=== PATIENT | male | born 1945 | race Caucasian/White ===

== ENCOUNTER 2022-06-12 13:39 | Emergency (ER) | payer OTHER, MEDICARE, BC ==
[2022-06-12 14:54] LABS: CHLORIDE,CL 99 mmol/L (98-107); SODIUM,NA 138 mmol/L (136-145)
[2022-06-12 14:56] LABS: ANION GAP 12.3 mmol/L (5-15); ESTIMATED GFR 70 mL/min (>=60)
[2022-06-12] MEDS ORDERED: Take Home: Cyclobenzaprine 10 MG Tab, 4 Tab Pack PO ONE (15:01)
[2022-06-12] MEDS ORDERED: Cyclobenzaprine 10 MG Tab PO ONE (15:09)
== END 2022-06-12 15:17 | disposition home or self-care (01) ==
LOC: VM.ED 13:39
DX: M54.16 Radiculopathy, lumbar region (principal); E78.00 Pure hypercholesterolemia, unspecified; I10 Essential (primary) hypertension; E11.9 Type 2 diabetes mellitus without complications; Z79.82 Long term (current) use of aspirin; Z79.84 Long term (current) use of oral hypoglycemic drugs; Z79.899 Other long term (current) drug therapy; Z86.16 Personal history of COVID-19
CPT/HCPCS: 36415; 80053; 83880; 85025; 85379; 99283; A9270-GY

== ENCOUNTER 2022-11-11 14:16 | Emergency (ER) | payer OTHER, MEDICARE, BC ==
[2022-11-11] MEDS ORDERED: HYDROmorphone 1 MG/ML Syringe SUBCUT ONE (14:34)
== END 2022-11-11 15:42 | disposition home or self-care (01) ==
LOC: VM.ED 14:16
DX: M54.10 Radiculopathy, site unspecified (principal); E78.00 Pure hypercholesterolemia, unspecified; I10 Essential (primary) hypertension; E11.9 Type 2 diabetes mellitus without complications; Z86.16 Personal history of COVID-19; Z79.82 Long term (current) use of aspirin; Z79.84 Long term (current) use of oral hypoglycemic drugs
CPT/HCPCS: 96372; 99283; 99284; J1170

== ENCOUNTER 2022-11-16 08:58 | Emergency (ER) | payer OTHER, MEDICARE, BC ==
[2022-11-16] MEDS ORDERED: HYDROmorphone 1 MG/ML Syringe SUBCUT ONE (09:26)
== END 2022-11-16 10:30 | disposition home or self-care (01) ==
LOC: VM.ED 08:58
DX: M54.10 Radiculopathy, site unspecified (principal); M54.50 Low back pain, unspecified; I10 Essential (primary) hypertension; E78.00 Pure hypercholesterolemia, unspecified; E11.9 Type 2 diabetes mellitus without complications; Z86.16 Personal history of COVID-19; Z79.82 Long term (current) use of aspirin; Z79.84 Long term (current) use of oral hypoglycemic drugs; Z79.899 Other long term (current) drug therapy
CPT/HCPCS: 72100; 96372; 99283; J1170

== ENCOUNTER 2024-10-08 07:44 | Emergency (ER) | payer OTHER ==
[2024-10-08 08:30] LABS: BASOPHILS PERCENT AUTO 0.2 % (0.2-1.2); EOSINOPHILS ABSOLUTE AUTO 0.1 x10^3/uL (0.0-0.5); EOSINOPHILS PERCENT AUTO 1.5 % (0.0-4.0); HEMATOCRIT 35.7 % (40.0-52.0); HEMOGLOBIN 12.4 g/dL (14.0-18.0); IMMATURE GRAN ABSOLUTE AUTO 0.01 x10^3/uL (0.00-0.07); LYMPHOCYTES ABSOLUTE AUTO 1.3 x10^3/uL (1.0-4.8); LYMPHOCYTES PERCENT AUTO 14.7 % (25.0-50.0); MEAN CORPUSCULAR HEMOGLOBIN 30.1 pg (26.0-32.0); MEAN CORPUSCULAR HGB CONC 34.7 g/dL (32.0-36.0); MEAN CORPUSCULAR VOLUME 86.7 fL (78.0-93.0); MONOCYTES ABSOLUTE AUTO 0.6 x10^3/uL (0.0-0.8); MONOCYTES PERCENT AUTO 6.2 % (2.0-11.0); NEUTROPHILS ABSOLUTE AUTO 6.9 x10^3/uL (1.8-7.7); NEUTROPHILS PERCENT AUTO 77.3 % (50.0-80.0); PLATELET COUNT,PLT 135 x10^3/uL (130-400); RED BLOOD CELL COUNT 4.12 x10^6/uL (4.5-6.0); WHITE BLOOD CELL COUNT,WBC 8.9 x10^3/uL (4.0-10.0)
[2024-10-08 08:51] LABS: A/G RATIO 1.5; ALBUMIN 3.9 g/dL (3.4-5.0); BILIRUBIN TOTAL 0.7 mg/dL (0.2-1.0); CREATININE 1.1 mg/dL (0.70-1.30); EST CRCL DRUG DOSING (CG) 53.55 mL/min; POTASSIUM,K 4.8 mmol/L (3.5-5.1); PROTEIN TOTAL,TP 6.5 g/dL (6.4-8.2)
[2024-10-08 08:52] LABS: ANION GAP 12.8 mmol/L (5-15)
== END 2024-10-08 10:12 | disposition home or self-care (01) ==
LOC: VM.ED 07:44 → SUPCPDRO 07:44 → VM.ED 10:12
DX: J18.9 Pneumonia, unspecified organism (principal); I10 Essential (primary) hypertension; E78.00 Pure hypercholesterolemia, unspecified; E11.9 Type 2 diabetes mellitus without complications; Z79.82 Long term (current) use of aspirin; Z79.84 Long term (current) use of oral hypoglycemic drugs; Z79.899 Other long term (current) drug therapy; Z86.16 Personal history of COVID-19
CPT/HCPCS: 71045; 80053; 85025; 87428-QW; 87651; 99283; 99284